=== PATIENT | female | born 2000 | race Hispanic/Latino ===

== ENCOUNTER 2024-08-08 22:46 | Emergency (ER) | payer SELFPAY ==
[~2024-08-08] VITALS: Ht 157.5 cm; Wt 61.2 kg
--- NOTE | 2024-08-08 22:50 | NUR ---
UA CUP PROVIDED
--- NOTE | 2024-08-08 23:05 | ERN ---
ED Note History of Present Illness Stated Complaint: LEFT FLANK Chief Complaint: Flank Pain Time Seen by MD: 23:05 Time Seen by Midlevel: 23:08 Dictation: Ms. Agudelo is a 24-year-old female with no reported chronic health issues who presented to the emergency department this evening for evaluation of flank pain. She is reports 24 hours of left flank pain and frequent urination. She states that last night her mother gave her some azo take. Today after work she felt nauseated and states she was having some hot flashes . Prompting her to come to the emergency department. She denies having shortness of breath, cough, chest pain, palpitations, abdominal pain, vomiting, diarrhea, melena, hematochezia, diarrhea, constipation, vaginal bleeding, headache, or dizziness. Allergies: Coded Allergies: Penicillins (Unverified Allergy, Unknown, 08/08/24) Past Medical History Past Medical History: No Pertinent History Surgical History: None PSYCH History: no pertinent psych hx Social History: Negative, Lives with family LMP: Jul 26, 2024 RN Note Reviewed/Agreed w/PFSH: Yes Review of System Dictation REVIEW OF SYSTEMS: CONSTITUTIONAL: Patient denies chills, sweats and weight changes. States she thinks she may have had a fever; experiencing hot flashes . EYES: Patient denies any visual symptoms. EARS, NOSE, AND THROAT: No difficulties with hearing. No symptoms of rhinitis or sore throat. CARDIOVASCULAR: Patient denies chest pains, palpitations, orthopnea and paroxysmal nocturnal dyspnea. RESPIRATORY: No dyspnea on exertion, no wheezing or cough. GI: No vomiting, diarrhea, constipation, abdominal pain, hematochezia or melena. Reports slight nausea. : No urinary hesitancy or dribbling. No nocturia. No abnormal urethral discharge. Reports frequent urination. Reports left flank pain times 24 hours MUSCULOSKELETAL: No myalgias or arthralgias. NEUROLOGIC: No chronic headaches, no seizures. Patient denies numbness, tingling or weakness. PSYCHIATRIC: Patient denies problems with mood disturbance. No problems with anxiety. ENDOCRINE: No excessive urination or excessive thirst. DERMATOLOGIC: Patient denies any rashes or skin changes. Initial Vital Sign VS Vital Signs Date Time Temp Pulse Resp B/P (MAP) Pulse Ox O2 Delivery O2 Flow Rate FiO2 08/08/24 22:47 98.6 77 20 134/94 99 Room Air 08/08/24 23:22 0 21 Physical Exam Dictation Vital signs: Reviewed. Afebrile Constitutional: No acute distress. Non-toxic appearing. Head/Face: Normocephalic, atraumatic. Eyes: Periorbital areas with no swelling, redness, or edema. Lids and lashes are normal. Conjunctival injection is absent. Sclera anicteric. Pupils equal, round, reactive to light. ENT: Pinnas intact and no signs of trauma or erythema. Ear canals clear and no discharge. TMs no erythema. No nasal discharge or bleeding noted. Oropharynx with no exudate, redness, swelling, masses, exudates, or evidence of obstruction. Uvula midline. Mucous membranes moist. Neck: Trachea midline, no masses palpated, and no cervical lymphadenopathy. No swelling. Supple, full range of motion. Chest/Axilla: No tenderness, no crepitus, no paradoxical movement, no retractions. Cardiovascular: Regular rate, regular rhythm, no murmur, no gallops. Symmetric pulses. No peripheral edema. Respiratory: Respirations even and unlabored. Lung sounds clear; no wheezes, rales or rhonchi. Room air SpO2 99% Gastrointestinal: Inspection is normal. No distention is appreciated. Bowel sounds are normal. No mass or organomegaly . There is no tenderness. No rebound. No rigidity. No voluntary or involuntary guarding. No Alvarado's sign. : Positive CVA tenderness on left. Neurological: Normal speech, gross motor function intact, gross sensory functio n intact. No focal weakness/Paresthesia. Musculoskeletal/Extremities: All extremities have full range of motion, no pain or tenderness on palpation. Symmetric pulses. Integumentary: Intact. Skin is flushed, warm and dry. Cap refill less than 3 seconds. Results (Laboratory/Radiology) Laboratory/Radiology Laboratory Tests Test 08/08/24 23:18 Urine Color COLORLESS (YELLOW) Urine Appearance HAZY (CLEAR) Urine pH 7.0 (5.0-8.0) Urine Specific Powell 1.007 (1.001-1.031) Urine Protein 10 mg/dL (NEGATIVE) H Urine Glucose (UA) NEGATIVE mg/dL (NEGATIVE) Urine Ketones NEGATIVE mg/dL (NEGATIVE) Urine Occult Blood +- (TRACE) (NEGATIVE) H Urine Nitrate NEGATIVE (NEGATIVE) Urine Bilirubin NEGATIVE mg/dL (NEGATIVE) Urine Urobilinogen 0.2 mg/dL (0.2-1.0) Urine Leukocyte Esterase 250 Kayode/uL (NEGATIVE) H Urine RBC 6-10 /HPF (0-1) H Urine WBC 26-50 /HPF (0-1) H Urine Squamous Epithelial Cells FEW /HPF (0-2) Urine Non-Squamous Epithelial Cells 1 /HPF (0-2) Urine Bacteria RARE /HPF (None Seen) Urine Other Casts 2 /LPF (None Seen) Urine HCG, Qualitative NEGATIVE (NEGATIVE) Labs Reviewed?: Yes ED Course ED Course Orders Procedure Category Date Status Time ,Urine Test LAB 08/08/24 Complete 22:58 Urinalysis Profile LAB 08/08/24 Complete 22:58 Culture Urine SMOOTH 08/08/24 In Process 23:30 Vital Signs Date Time Temp Pulse Resp B/P (MAP) Pulse Ox O2 Delivery O2 Flow Rate FiO2 08/08/24 23:22 98.4 84 18 132/71 96 Room Air* 0 21 08/08/24 22:47 98.6 77 20 134/94 99 Room Air Uneventful ED course. Patient remains afebrile and normotensive with room air SpO2 96-199%. Laboratory findings as noted below. HCG negative. UA positive protein, blood, leukocyte esterase, and UWBC 26-50; culture pending. While in the emergency department she received dose nitrofurantoin. Findings were discussed with patient and all questions were answered. Medical Decision Making MDM MDM: Differential diagnosis: UTI, pyelonephritis Rationale: Tests considered and ordered secondary to shared decision making include: Lab Previous outside records reviewed: Old ER visits. Risk of complication and/or morbidity or mortality of patient management: None Medications-Per medication reconciliation Need for hospitalization: Patient does not meet criteria for hospitalization. Need for emergency major/minor surgery: No There are no social concerns with this patient. Prescription drug management nitrofurantoin, Pyridium, Zofran Prescriptions will include symptomatic care Patient's prior external medical records from other ER visits were reviewed by me as indicated. Prior testing and results from previous visits were reviewed. Prior tests were taken into account with medical decision making and resource utilization, independent historian/historians were used to obtain complete medical history. I independently interpreted the test that were performed, results were reviewed by me and considered findings on radiology if ordered. Medical management and examination interpretation discussions were had by me with other qualified healthcare professionals as indicated for the patient's care. DX & DISP Disposition: Discharge Departure Impression: Primary Impression: UTI (urinary tract infection) Additional Impression: Flank pain Condition: Stable Scripts Phenazopyridine HCl (Pyridium) 100 Mg Tab 1 TAB PO TID for urinary discomfort for 2 Days, #6 TAB 0 Refills Prov: MIGUEL ANGEL DURÁN NP 08/09/24 Nitrofurantoin Macrocrystal (Nitrofurantoin) 100 Mg Capsule 1 CAP PO BID for 7 Days, #14 CAP 0 Refills Prov: MIGUEL ANGEL DURÁN NP 08/09/24 Ondansetron (Ondansetron Odt) 4 Mg Tab.rapdis 4 MG PO Q6HPRN PRN for nausea, #15 TAB 0 Refills Prov: MIGUEL ANGEL DURÁN NP 08/09/24 Additional Instructions: Rest. No work until symptoms are improving and you have been fever free times 24 hours. Increase p.o. fluid intake. Continue antibiotic with nitrofurantoin twice daily x7 days. May take Pyridium3 times a day as needed for discomfort. Zofran every 6 hours as needed for nausea and vomiting. Follow up with your primary care physician. Return to the emergency department for worsening of symptoms or concerns. Time of Disposition: 00:08 MIGUEL ANGEL DURÁN NP Aug 08, 2024 23:05
[2024-08-08 23:22] VITALS: BP 132/71; PULSE 84; RESP 18; TEMP 98.5; O2SAT 96
[2024-08-08 23:30] LABS: ADD UA MICROSCOPIC YES; APPEARANCE,URINE HAZY (CLEAR); BILIRUBIN,URINE NEGATIVE (NEGATIVE); COLOR,URINE COLORLESS (YELLOW); GLUCOSE, URINE (UA) NEGATIVE (NEGATIVE); KETONES,URINE NEGATIVE (NEGATIVE); LEUKOCYTE ESTERASE ,URINE 250 Leu/uL (NEGATIVE); NITRATE,URINE NEGATIVE (NEGATIVE); PROTEIN,URINE 10 mg/dL (NEGATIVE); UROBILINOGEN,URINE 0.2 mg/dL (0.2-1.0)
[2024-08-08 23:33] LABS: BACTERIA,URINE RARE /HPF (None Seen); NON-SQUAMOUS EPITHELIAL CELL 1 /HPF (0-2); OTHER CASTS, URINE 2 /LPF (None Seen); SQUAMOUS EPITHELIAL CELL,UR FEW /HPF (0-2); WBC,URINE 26-50 /HPF (0-1)
[2024-08-08 23:36] LABS: HCG,QUALITATIVE URINE NEGATIVE (NEGATIVE)
[2024-08-09] MEDS ORDERED: NITR100C PO (00:07)
[2024-08-09] MEDS ORDERED: ONDA-243 PO (00:07)
[2024-08-09] MEDS ORDERED: PHEN-846 PO (00:07)
[2024-08-09] MEDS: NITROFURANTOIN MONOHYD/M-CRYST 100 MG CAPSULE PO ONE (00:15)
== END 2024-08-09 00:23 | disposition home or self-care (01) ==
LOC: EDH 22:46
DX: N39.0 Urinary tract infection, site not specified (principal); Z88.0 Allergy status to penicillin
CPT/HCPCS: 81001; 81025; 87086; 99283